=== PATIENT | male | born 1975 | race Caucasian/White ===

== ENCOUNTER 2022-12-28 08:09 | Emergency (ER) | payer BC, SELFPAY ==
[2022-12-28] VITALS (17 sets, daily range): BP systolic 131–197; BP diastolic 90–117; PULSE 73–99; RESP 10–23; TEMP 36.6–37; O2SAT 96–100
--- NOTE | 2022-12-28 08:22 | ECG_ITS ---
Measurements Intervals [place] Rate: 75 P: 39 MD: 174 QRS: 5 QRSD: 88 T: 13 QT: 337 QTc: 379 Interpretive Statements SINUS RHYTHM BASELINE ARTIFACT- I, III, AVR, AVL, AVF NORMAL ECG NO PREVIOUS ECG AVAILABLE FOR COMPARISON Electronically Signed On 12-28-2022 8:59:54 CDT by Juan David D.O.
--- NOTE | 2022-12-28 08:26 | ED.GENADULT ---
HPI - General Adult General Chief complaint: Recheck/Abnormal Lab/Rx Stated complaint: high BP Time Seen by Provider: 12/28/22 08:15 History of Present Illness HPI narrative: 47-year-old male presenting to the emergency department for evaluation of elevated blood pressure. Patient does normally take metoprolol for his blood pressure. Patient states that on Wednesday he started taking a Medrol Dosepak for some foot swelling. Patient did take 1 dose of the Medrol Dosepak and noticed that his blood pressure was elevated. Patient called the pharmacist and they instructed him to stop taking the steroid. Patient states that on Wednesday he did have a flushed face and did have some bloodshot eyes. Patient denied any associated headache or chest pain with this. Patient states that his blood pressures have remained elevated. Patient does take metoprolol at nighttime and did take his medications last night. Patient takes no morning blood pressure meds. Patient denies any prior history of PR or CVA. Patient does report a family history of coronary artery disease. Patient reports he did have a stress test a few years ago that was negative. Patient is not a smoker Related Data Home Medications Medication Instructions Recorded Confirmed metoprolol succinate 100 mg 100 mg PO 12/28/22 tablet,extended release 24 hr pravastatin 40 mg tablet 100 mg 12/28/22 Allergies Allergy/AdvReac Type Severity Reaction Status Date / Time Sulfa (Sulfonamide Allergy Swelling Verified 12/28/22 08:27 Antibiotics) of Lip/Tongue/Throat iohexol AdvReac Headache Verified 12/28/22 08:29 [From contrast - CT, X-RAY] Review of Systems Review of Systems: All systems reviewed & are unremarkable except as noted in HPI and below Exam Narrative: APPEARANCE: Well appearing, no pain, no distress, well-nourished. HEAD: normocephalic, atraumatic. EYES: PERRLA/EOMI, conjunctivae clear. NOSE: Normal no drainage NECK: Supple. No adenopathy, no masses. RESPIRATORY: Airway patent, respirations nonlabored. Clear to auscultation bilaterally, no rales, rhonchi, wheezing. CARDIOVASCULAR: Regular rate and rhythm without murmurs rubs or gallops. ABDOMINAL: Soft, nontender, nondistended, normal bowel sounds MUSCULOSKELETAL: Moves all extremities. Strength/ROM intact, No edema, No calf tenderness. NEURO: Alert. Cranial nerves II through XII intact. SKIN: Warm, dry. Normal Color Course Course Emergency Course: 47-year-old male with elevated blood pressure after recently being started on a Medrol Dosepak. Patient's blood pressure on arrival was 197/117. Patient denied any associated chest pain shortness of breath or headache with this. Baseline labs were ordered to evaluate for endorgan injury. Patient was also treated with hydralazine. Patient's blood pressure did significantly improve with hydralazine. Patient is afebrile with no leukocytosis. Patient's hemoglobin is stable. Patient's electrolytes are similar to his baseline. Patient does have history of borderline diabetes and patient's glucose is 218. Patient's troponins were negative and EKG showed no evidence of acute STEMI. Patient's UA showed no proteinuria. Case was discussed with the patient's nurse practitioner, Sara Nelson, he was comfortable to plan on starting the patient on lisinopril. She will have close follow-up with the patient in the clinic. Patient was updated on the results of the work-up and plan for treatment. He was encouraged of close follow-up with his primary care physician. All question concerns were addressed Vital Signs Vital signs: Vital Signs Temperature 97.9 F 12/28/22 08:15 Pulse Rate 73 12/28/22 08:15 Respiratory Rate 15 12/28/22 08:15 Blood Pressure 197/117 H 12/28/22 08:15 Pulse Oximetry 100 12/28/22 08:15 Oxygen Delivery Room Air 12/28/22 08:15 Temperature 98.6 F 12/28/22 11:27 Pulse Rate 90 12/28/22 11:27 Respiratory Rate 20 0
[2022-12-28] MEDS: hydrALAZINE HCL 20 MG/ML VIAL 10 MG IV PUSH (08:47)
[2022-12-28 09:30] LABS: Basophils Absolute Auto 0.1 K/mm3 (0.0-0.1); Basophils Percent Auto 0.6 % (0.2-1.2); Eosinophils Absolute Auto 0.2 K/mm3 (0-0.3); Eosinophils Percent Auto 1.5 % (0-4.4); Hematocrit 50.3 % (42.0-52.0); Hemoglobin 17.4 g/dL (14.0-18.0); Immature Granulocyte Absolute 0.08 K/mm3 (0.00-0.031); Immature Granulocyte Percent A 0.7 % (0-0.5); Lymphocytes Absolute Auto 2.65 K/mm3 (0.9-3.2); Lymphocytes Percent Auto 24.5 % (18.3-44.2); Mean Corpuscular HGB Conc 34.6 g/dl (32-36); Mean Corpuscular Volume 89.5 fl (80-100); Mean Platelet Volume 10.7 fl (7.4-10.4); Monocytes Absolute Auto 0.6 K/mm3 (0.1-0.6); Monocytes Percent Auto 5.5 % (2.6-8.5); Neutrophils Absolute Auto 7.3 K/mm3 (1.3-6.7); Neutrophils Percent Auto 67.2 % (45.5-73.1); Platelet Count Result 244 k/mm3 (150-375); Red Blood Count 5.62 M/mm3 (4.6-6.20); White Blood Count 10.8 K/mm3 (4.5-10.0)
[2022-12-28 09:39] LABS: Alanine Aminotransferase 59 U/L (6-50); Albumin Level 4.6 g/dL (3.5-5.1); Alkaline Phosphatase 89 U/L (38-126); Anion Gap 9 mmol/L (8-16); Aspartate Amino Transferase 27 U/L (17-59); Bilirubin,Total 0.9 mg/dL (0.2-1.3); Blood Urea Nitrogen 20 mg/dL (9-20); Calcium 9.3 mg/dL (8.4-10.2); Carbon Dioxide 24 mmol/L (22-30); Chloride 104 mmol/L (98-107); Estimated CRCL calculation 101 ml/min; Estimated Glomerular Filt Rate > 60; Glucose 218 mg/dL (65-110); Potassium 3.9 mmol/L (3.4-5.0); Sodium 137 mmol/L (137-145)
[2022-12-28 09:50] LABS: Troponin I < 0.012 ng/mL (0.000-0.034)
[2022-12-28 10:31] LABS: Appearance Urine Clear (Clear); Bacteria Urine None Seen /hpf; Bilirubin Urine Negative (Negative); Blood Urine Negative (Negative); Color Urine Yellow (Yellow); Glucose Urine UA Negative (Negative); Ketones Urine Negative (Negative); Leukocyte Esterase Ur 1+ LEU/UL (Negative); Mucus Urine Present /lpf; Nitrate Urine Negative (Negative); Non Pathogenic Casts 0-2; Protein Urine Trace mg/dL (Negative); RBC Urine 0-2 /hpf (0-2); Specific Grav Ur 1.017 (1.001-1.035); Squamous Epithelial Cell Urine None seen /hpf (Few); Urobilinogen Urine 0.2 mg/dL (<2.0); WBC Urine 0-5 /hpf
[2022-12-28 10:32] LABS: Add Urine Microscopic? YES
[2022-12-28] MEDS: lisinopriL 10 MG TABLET PO (11:10)
== END 2022-12-28 11:28 | disposition home or self-care (01) ==
PROVIDERS: Emergency Provider Emergency Medicine; PCP Physician Assistant
DX: I10 Essential (primary) hypertension (principal)
CPT/HCPCS: 36415; 80053; 81001; 84484; 85025; 93005; 96374; 99284; A9270; J0360